=== PATIENT | female | born 1980 | race Two or more races ===

== ENCOUNTER 2019-05-25 12:44 | Emergency (ER) | payer MEDICAID ==
[~2019-05-25] VITALS: Ht 162.6 cm; Wt 78.8 kg
[~2019-05-25 12:44] MED LIST: FER325 PO
[2019-05-25 12:51] VITALS: BP 128/69; PULSE 82; RESP 17; Ht 162.6 cm; Wt 78.8 kg
[2019-05-25] MEDS ORDERED: HYDROCODONE/APAP (5/325) TAB PO ONE (15:00)
== END 2019-05-25 16:08 | disposition home or self-care (01) ==
LOC: FTE 12:44
DX: N93.9 Abnormal uterine and vaginal bleeding, unspecified (principal); D25.9 Leiomyoma of uterus, unspecified; D64.9 Anemia, unspecified; R10.2 Pelvic and perineal pain
CPT/HCPCS: 36415; 76856; 80053; 81001; 81025; 85025; Z7502; Z7610